=== PATIENT | female | born 1940 | race Caucasian/White ===

== ENCOUNTER 2016-05-10 10:46 | Emergency (ER) | payer MEDICARE ==
[2016-05-10 11:26] LABS: BILIRUBIN 2+ mg/dL (NEGATIVE); BLOOD 3+ Ery/uL (NEGATIVE); CLARITY HAZY (CLEAR); COLOR RED (YELLOW); GLUCOSE (U) NORMAL (NORMAL); KETONE (U) TRACE mg/dL (NEGATIVE); LEUKOCYTES 3+ Leu/uL (NEGATIVE); NITRITE POSITIVE (NEGATIVE); PROTEIN 3+ mg/dL (NEGATIVE); pH 7.5 (5.0-9.0)
[2016-05-10 11:31] LABS: BACTERIA 1+; SQUAMOUS EPITHELIAL CELLS RARE; URINARY RBC 20-50
[2016-05-10 11:42] LABS: BASOPHIL 1.6 % (0-2); EOSINOPHIL 5.2 % (0-7); HCT 48.4 % (37.0-47.0); HGB 16.2 g/dl (12.5-16.0); LYMPHOCYTE 22.4 % (15-48); MCH 32.8 pg (25.0-31.0); MCHC 33.5 g/dL (32.0-36.0); MONOCYTE 9.2 % (0-12); MPV 10.6 fL (6.0-9.5); NEUTROPHIL 61.6 % (41-80); PLT 177 K/uL (150-400); RBC 4.94 M/uL (4.20-5.40); RDW 14.2 % (11.5-14.0); WBC 5.6 K/uL (4.0-10.5)
[2016-05-10 12:41] LABS: INR 1.42 (0.9-1.2); PROTHROMBIN TIME 16.9 SECONDS (11.7-14.0)
[2016-05-10 12:47] LABS: ALBUMIN 3.9 g/dL (3.4-4.8); BILIRUBIN - TOTAL 0.4 mg/dL (0.1-1.0); PHOSPHORUS 2.6 mg/dL (2.7-4.5); POTASSIUM 4.4 mmol/L (3.5-5.1); TOTAL PROTEIN 6.9 g/dL (6.4-8.3)
[2016-05-10 12:56] LABS: PTT 30.9 SECONDS (23.2-31.4)
== END 2016-05-10 14:05 | disposition home or self-care (01) ==
LOC: FER 10:46
PROVIDERS: Emergency Medicine
DX: N13.2 Hydronephrosis with renal and ureteral calculous obstruction (principal); I10 Essential (primary) hypertension; I25.2 Old myocardial infarction; E03.9 Hypothyroidism, unspecified; Z95.1 Presence of aortocoronary bypass graft
CPT/HCPCS: 36415; 80053; 81001; 84100; 84484; 85025; 85610; 85730; 87076; 87088; 87186

== ENCOUNTER 2016-05-13 11:40 | Emergency (ER) | payer MEDICARE | END 2016-05-13 14:22 | disposition home or self-care (01) | LOC: FER 11:40 | DX: M79.81 Nontraumatic hematoma of soft tissue (principal); I25.2 Old myocardial infarction; I10 Essential (primary) hypertension; Z86.718 Personal history of other venous thrombosis and embolism; Z91.040 Latex allergy status; Z79.82 Long term (current) use of aspirin; Z79.01 Long term (current) use of anticoagulants; Z79.899 Other long term (current) drug therapy | CPT/HCPCS: 93971; 99283 ==

== ENCOUNTER 2020-04-06 06:50 | Day surgery (SDCO) | payer MEDICARE ==
[~2020-04-06] VITALS: Ht 158 cm; Wt 62.0 kg
[~2020-04-06 06:50] MED LIST: BACLOFEN 10MG T10 MG PO; BUSPIRONE HCL15 M1 PO; DONEPEZIL HCL5 MG PO; DULOXETINE HCL60 MG PO; ELIQUIS5 MG PO; FLEXERIL10 MG PO; FOLIC ACID1 M1 PO; KEFLEX250 MG PO; LIPITOR20 MG PO; LOSARTAN POTASS25 MG PO; MELATONIN5 M2 PO; NAPROXEN500 MG PO; ONDANSETRON ODT4 MG PO; SYNTHROID75 MCG PO; TOPROL XL 25MG25 MG PO; WARFARIN SODIUM5 MG PO
[2020-04-06 08:48] LABS: INR 1.09 (0.9-1.2); PROTHROMBIN TIME 13.4 SECONDS (11.4-13.6); PTT 22.8 SECONDS (22.2-34.7)
[2020-04-06 09:07] LABS: BUN/CREAT RATIO (CALC) 20.2 RATIO; CREATININE 1.09 mg/dL (0.51-0.95); POTASSIUM 4.1 mmol/L (3.5-5.1)
[2020-04-07 06:45] LABS: HCT 39.5 % (37.0-47.0); HGB 12.6 g/dl (12.5-16.0); MCH 32.9 pg (25.0-31.0); MCHC 31.9 g/dL (32.0-36.0); MCV 103.1 fL (78.0-100.0); MPV 10.6 fL (6.0-9.5); RBC 3.83 M/uL (4.20-5.40); RDW 13.8 % (11.5-14.0); WBC 11.3 K/uL (4.0-10.5)
[2020-04-07 06:54] LABS: INR 1.11 (0.9-1.2); PROTHROMBIN TIME 13.6 SECONDS (11.4-13.6)
[2020-04-07 07:07] LABS: BUN/CREAT RATIO (CALC) 19.4 RATIO; CREATININE 1.08 mg/dL (0.51-0.95); POTASSIUM 4.9 mmol/L (3.5-5.1)
[2020-04-07] MEDS ORDERED: TOPROL XL 25MG25 MG PO (13:02)
[2020-04-07] MEDS ORDERED: WARFARIN SODIUM5 MG PO (13:05)
--- NOTE | 2020-04-07 14:56 | NUR ---
04/07/20 Ms. Marquis lives at home with her spouse. She was indeoendent in the home and community prior to admission. She underwent a masectomy. A referral was made to [facility] per patient choice; affliations explained. - Ms. Villalobos was educated to [facility] and [facility]. - Report was given to MS KARLA Goodman.
[2020-04-07] MEDS ORDERED: ULTRAM50 MG PO (15:11)
[2020-04-07] MEDS ORDERED: ACETAMINOPHEN500 M1 PO (15:11)
== END 2020-04-07 16:50 | disposition home health service (06) ==
LOC: FMS 06:50 → FSDC 06:50 → FMS 09:30
PROVIDERS: ADMIT Student in an Organized Health Care Education/Training Program
DX: C50.512 Malignant neoplasm of lower-outer quadrant of left female breast (principal); D24.2 Benign neoplasm of left breast; F41.9 Anxiety disorder, unspecified; E03.9 Hypothyroidism, unspecified; I25.10 Atherosclerotic heart disease of native coronary artery without angina pectoris; I11.0 Hypertensive heart disease with heart failure; I50.9 Heart failure, unspecified; F32.9 Major depressive disorder, single episode, unspecified; F03.90 Unspecified dementia, unspecified severity, without behavioral disturbance, psychotic disturbance, mood disturbance, and anxiety; F05 Delirium due to known physiological condition; I95.81 Postprocedural hypotension; K21.9 Gastro-esophageal reflux disease without esophagitis; E78.5 Hyperlipidemia, unspecified; E55.9 Vitamin D deficiency, unspecified; I34.0 Nonrheumatic mitral (valve) insufficiency; I73.9 Peripheral vascular disease, unspecified; Q63.1 Lobulated, fused and horseshoe kidney; E53.8 Deficiency of other specified B group vitamins; E78.00 Pure hypercholesterolemia, unspecified; I07.1 Rheumatic tricuspid insufficiency; I48.0 Paroxysmal atrial fibrillation; I25.2 Old myocardial infarction; Z17.0 Estrogen receptor positive status [ER+]; Z87.891 Personal history of nicotine dependence; Z79.01 Long term (current) use of anticoagulants; Z79.899 Other long term (current) drug therapy; Z88.8 Allergy status to other drugs, medicaments and biological substances; Z91.040 Latex allergy status; Z95.1 Presence of aortocoronary bypass graft; Z90.11 Acquired absence of right breast and nipple
CPT/HCPCS: 36415; 78195; 80048; 85610; 85730; 88341; 88342; 94762; A9541; G0378; J0690; J1644; J2370; J2405; J2704; J3010; J7030; J7120

== ENCOUNTER 2020-08-12 10:45 | Emergency (ER) | payer MEDICARE ==
[~2020-08-12 10:45] MED LIST changes: +ACETAMINOPHEN500 M1 PO; +ULTRAM50 MG PO
== END 2020-08-12 12:05 | disposition home or self-care (01) ==
LOC: FER 10:45
DX: S43.402A Unspecified sprain of left shoulder joint, initial encounter (principal); Z85.3 Personal history of malignant neoplasm of breast; W11.XXXA Fall on and from ladder, initial encounter
CPT/HCPCS: 73030

== ENCOUNTER 2021-02-04 15:14 | Inpatient (IN) | payer MEDICARE ==
[~2021-02-04] VITALS: Ht 157.5 cm; Wt 60.8 kg
[2021-02-04 16:52] LABS: BASOPHIL 0.1 % (0-2); EOSINOPHIL 0.1 % (0-7); HCT 47.5 % (37.0-47.0); HGB 15.9 g/dl (12.5-16.0); LYMPHOCYTE 4.5 % (15-48); MCH 31.7 pg (25.0-31.0); MCHC 33.5 g/dL (32.0-36.0); MCV 94.8 fL (78.0-100.0); MONOCYTE 7.8 % (0-12); MPV 11.3 fL (6.0-9.5); NEUTROPHIL 87.1 % (41-80); NRBC 0; PLT 171 K/uL (150-400); RBC 5.01 M/uL (4.20-5.40); RDW 13.8 % (11.5-14.0); WBC 14.8 K/uL (4.0-10.5)
[2021-02-04 17:28] LABS: INR 2.29 (0.9-1.2); PROTHROMBIN TIME 24.3 SECONDS (11.8-13.4)
[2021-02-04 17:32] LABS: LACTIC ACID 1.4 mmol/L (0.4-1.9)
[2021-02-04 17:44] LABS: ALBUMIN 3.1 g/dL (3.4-5.0); BILIRUBIN - TOTAL 1.1 mg/dL (0.2-1.0); BUN/CREAT RATIO (CALC) 17.9 RATIO; CREATININE 1.12 mg/dL (0.51-0.95); GLOBULIN (CALCULATION) 4.5 g/dL; POTASSIUM 4.2 mmol/L (3.5-5.1); TOTAL PROTEIN 7.6 g/dL (6.4-8.2)
[2021-02-04 20:47] LABS: BILIRUBIN NEGATIVE (NEGATIVE); BLOOD 3+ Ery/uL (NEGATIVE); COLOR YELLOW (YELLOW); GLUCOSE (U) NORMAL (NORMAL); LEUKOCYTES 2+ Leu/uL (NEGATIVE); NITRITE NEGATIVE (NEGATIVE); PROTEIN 1+ mg/dL (NEGATIVE); SPECIFIC GRAVITY 1.015 (1.001-1.030); pH 8.5 (5.0-9.0)
[2021-02-04 20:51] LABS: CLARITY HAZY (CLEAR)
[2021-02-04 20:53] LABS: BACTERIA 3+; URINARY WBC 20-50
[2021-02-04 23:02] LABS: CORONAVIRUS 2019 SARS-COV-2 NEGATIVE (NEGATIVE); INFLUENZA A NAA NEGATIVE (NEGATIVE)
[2021-02-05 04:10] LABS: HCT 41.2 % (37.0-47.0); HGB 13.5 g/dl (12.5-16.0); MCH 31.8 pg (25.0-31.0); MCHC 32.8 g/dL (32.0-36.0); MCV 96.9 fL (78.0-100.0); MPV 10.3 fL (6.0-9.5); RBC 4.25 M/uL (4.20-5.40)
[2021-02-05 04:29] LABS: ALBUMIN 2.4 g/dL (3.4-5.0); BILIRUBIN - TOTAL 1.4 mg/dL (0.2-1.0); BUN/CREAT RATIO (CALC) 17.1 RATIO; CREATININE 1.11 mg/dL (0.51-0.95); GLOBULIN (CALCULATION) 3.6 g/dL; MAGNESIUM 1.7 mg/dL (1.8-2.4); PHOSPHORUS 1.8 mg/dL (2.6-4.7); POTASSIUM 3.7 mmol/L (3.5-5.1)
[2021-02-05 08:36] LABS: BASOPHIL 0.5 % (0-2); EOSINOPHIL 0.2 % (0-7); HCT 43.4 % (37.0-47.0); HGB 13.7 g/dl (12.5-16.0); LYMPHOCYTE 10.9 % (15-48); MCH 31.9 pg (25.0-31.0); MCHC 31.6 g/dL (32.0-36.0); MONOCYTE 8.4 % (0-12); MPV 10.3 fL (6.0-9.5); NEUTROPHIL 79.3 % (41-80); NRBC 0; PLT 157 K/uL (150-400); RDW 14.2 % (11.5-14.0)
[2021-02-05 08:45] LABS: MCV 100.9 fL (78.0-100.0)
[2021-02-05 08:45] LABS: BUN/CREAT RATIO (CALC) 16.8 RATIO; CREATININE 1.01 mg/dL (0.51-0.95); POTASSIUM 3.9 mmol/L (3.5-5.1)
[2021-02-06 05:25] LABS: BASOPHIL 0.5 % (0-2); EOSINOPHIL 0.5 % (0-7); HCT 36.6 % (37.0-47.0); HGB 12.2 g/dl (12.5-16.0); LYMPHOCYTE 13.9 % (15-48); MCH 32.2 pg (25.0-31.0); MCHC 33.3 g/dL (32.0-36.0); MONOCYTE 9.6 % (0-12); MPV 10.3 fL (6.0-9.5); NEUTROPHIL 74.6 % (41-80); NRBC 0; PLT 148 K/uL (150-400); RBC 3.79 M/uL (4.20-5.40); RDW 14.2 % (11.5-14.0); WBC 8.5 K/uL (4.0-10.5)
[2021-02-06 05:27] LABS: MCV 96.6 fL (78.0-100.0)
[2021-02-06 05:34] LABS: INR 2.73 (0.9-1.2)
[2021-02-06 05:44] LABS: BUN/CREAT RATIO (CALC) 13.6 RATIO; CREATININE 0.88 mg/dL (0.51-0.95); POTASSIUM 2.9 mmol/L (3.5-5.1)
[2021-02-07 05:04] LABS: BASOPHIL 0.6 % (0-2); EOSINOPHIL 2.6 % (0-7); HCT 35.5 % (37.0-47.0); HGB 12.2 g/dl (12.5-16.0); MCHC 34.4 g/dL (32.0-36.0); MCV 95.9 fL (78.0-100.0); MONOCYTE 10.1 % (0-12); MPV 10.2 fL (6.0-9.5); NEUTROPHIL 71.1 % (41-80); NRBC 0; PLT 141 K/uL (150-400); RDW 14.4 % (11.5-14.0)
[2021-02-07 05:14] LABS: INR 4.03 (0.9-1.2); PROTHROMBIN TIME 38.1 SECONDS (11.8-13.4)
[2021-02-07 05:23] LABS: BUN/CREAT RATIO (CALC) 11.2 RATIO; CREATININE 0.89 mg/dL (0.51-0.95); MAGNESIUM 1.6 mg/dL (1.8-2.4); POTASSIUM 3.4 mmol/L (3.5-5.1)
[2021-02-07] MEDS ORDERED: LOPRESSOR25 MG PO (07:55)
[2021-02-07] MEDS ORDERED: FOLIC ACID1 MG PO (07:55)
[2021-02-08 05:43] LABS: BASOPHIL 0.8 % (0-2); EOSINOPHIL 6.1 % (0-7); HCT 37.5 % (37.0-47.0); HGB 12.3 g/dl (12.5-16.0); LYMPHOCYTE 16.3 % (15-48); MCH 31.8 pg (25.0-31.0); MCHC 32.8 g/dL (32.0-36.0); MCV 96.9 fL (78.0-100.0); MONOCYTE 11.2 % (0-12); MPV 10.4 fL (6.0-9.5); NEUTROPHIL 64.9 % (41-80); NRBC 0; PLT 174 K/uL (150-400); RBC 3.87 M/uL (4.20-5.40); RDW 14.6 % (11.5-14.0); WBC 5.9 K/uL (4.0-10.5)
[2021-02-08 05:53] LABS: INR 4.75 (0.9-1.2); PROTHROMBIN TIME 43.4 SECONDS (11.8-13.4)
[2021-02-08 06:04] LABS: BUN/CREAT RATIO (CALC) 7.5 RATIO; CREATININE 0.93 mg/dL (0.51-0.95); MAGNESIUM 1.9 mg/dL (1.8-2.4); POTASSIUM 3.8 mmol/L (3.5-5.1)
--- NOTE | 2021-02-08 14:23 | NUR ---
02/08/21 Ms. Marquis has a dx of dementia and is confused. She is unable to participate in a social assessment. Per telephone conversation with Mr. Marquis. Ms. Marquis lives at home and has 24 hour care from Mr. Marquis. She does not use DME. Ms. Marquis has 4 children in [place] and Mr. Marquis has 3 children. - Discharge plans were discussed with Mr. Jacobsen. He initially reported plans to for her to return home. Multiple resources were provided; Assisted Living, Adult Daycare, Sitter services and [facility]. - A return call was placed to Mr. Jacobsen after [facility] reports to have received a referral from a stepdaughter. Mr. Jacobsen was in agreement with making a referral to [facility]. Clinicials were faxed. He was educated to Medicare criteria for placement, private pay and Medicaid inhome spouse beneifit.
[2021-02-09 06:39] LABS: BASOPHIL 1.1 % (0-2); EOSINOPHIL 5.8 % (0-7); HCT 37.1 % (37.0-47.0); HGB 12.5 g/dl (12.5-16.0); LYMPHOCYTE 21.7 % (15-48); MCH 32.1 pg (25.0-31.0); MCHC 33.7 g/dL (32.0-36.0); MCV 95.1 fL (78.0-100.0); MONOCYTE 9.5 % (0-12); MPV 9.8 fL (6.0-9.5); NEUTROPHIL 61.7 % (41-80); NRBC 0; PLT 203 K/uL (150-400); RDW 14.5 % (11.5-14.0); WBC 6.6 K/uL (4.0-10.5)
[2021-02-09 06:56] LABS: INR 3.17 (0.9-1.2); PROTHROMBIN TIME 31.5 SECONDS (11.8-13.4)
[2021-02-09 07:05] LABS: BUN/CREAT RATIO (CALC) 6.3 RATIO; CREATININE 0.95 mg/dL (0.51-0.95); MAGNESIUM 1.8 mg/dL (1.8-2.4); POTASSIUM 3.3 mmol/L (3.5-5.1)
[2021-02-10 06:15] LABS: INR 2.09 (0.9-1.2); PROTHROMBIN TIME 22.6 SECONDS (11.8-13.4)
[2021-02-10 06:29] LABS: BUN/CREAT RATIO (CALC) 11.3 RATIO; CREATININE 0.97 mg/dL (0.51-0.95); POTASSIUM 3.5 mmol/L (3.5-5.1)
--- NOTE | 2021-02-10 14:11 | NUR ---
02/[address] Osborn, patient could be discharge if IV antibiotics can be arranged. A voice message was left for Mr. Marquis.
--- NOTE | 2021-02-11 13:05 | NUR ---
02/11/21 The IV Invanc has been approved by insurance. Mr. Marquis has agreed to pay the $300.00 co-pay. Report given to Dr. Osborn and JAMES Sanford, RN.
--- NOTE | 2021-02-11 14:21 | NUR ---
MD WILL ORDER PT TO GO HOME WITH HOMEHealth and CENTRAL LINE IN LEFT FEMORAL FOR ANTIBIOTIC USE. PT HAS 3 DAYS LEFT OF ANTIBIOTICS. AN ORDER WILL BE NEEDED TO HAVE PT COME BACK TO OUTPT ON MONDAY TO GET CENTRAL REMOVED.
[2021-02-11] MEDS ORDERED: ZESTRIL2.5 MG PO (14:37)
[2021-02-11] MEDS ORDERED: LASIX20 MG PO (14:46)
[2021-02-11] MEDS ORDERED: KLOR-CON M 1010 MEQ PO (14:46)
--- NOTE | 2021-02-11 16:31 | NUR ---
PT BEING DISCHARGED HOME WITH HOME HEALTH. JOSEFINA HAS SET HOME HEALTH UP TO GIVE PT ANTIBIOTIC IVANZ THROUGH CURRENT PT CENTRAL LINE IN LEFT FEMORAL TRIPLE LUMEN. THIS RN QUESTIONED SENDING PT HOME WITH CENTRAL WITH , [employer] SUPERVIOR, SKIP TRACER AND OTHER STAFF MEMBERS. SAID OK TO GO HOME WITH CENTRAL AND WROTE ORDERS TO DO SO AND ORDER TO COME BACK 02/14/21 TO REMOVE BY OUTPATIENT. ORDER FAXED TO OUTPATIENT. SPOKE WITH SANKET APPROX. [phone] TO VERIFY THAT THEY RECIEVED ORDER. SANKET STATES TO LET PT KNOW TO COME THROUGH ER OUTPATIENT AT 2PM. SPOUSE WAS EDUCATED ON THIS ORDER, AND WHAT INTERVENTION TO DO IF CENTRAL LINE IS ACCIDENTALLY REMOVED. SPOUSE WAS TOLD TO HOLD PRESSURE UNITL BLEEDING STOPS AND CALL EMS. WENT OVER ALL NEW MEDICATIONS WHAT THEY WERE FOR AND HOW TO USE.
== END 2021-02-11 16:48 | disposition home health service (06) | DRG 871 ==
LOC: FER 15:14 → FTCU 02-06 14:43 → FICU 02-06 14:43 → FTCU 02-07 07:24
PROVIDERS: Allergy & Immunology Allergy; Emergency Medicine; Nurse Practitioner; ADMIT Internal Medicine
PROC: 3E043XZ Introduction of Vasopressor into Central Vein, Percutaneous Approach (ICD-10-PCS; principal; 2021-02-05)
DX: A41.59 Other Gram-negative sepsis (principal); R65.21 Severe sepsis with septic shock; I50.23 Acute on chronic systolic (congestive) heart failure; I21.A1 Myocardial infarction type 2; J18.9 Pneumonia, unspecified organism; G93.41 Metabolic encephalopathy; N39.0 Urinary tract infection, site not specified; I48.20 Chronic atrial fibrillation, unspecified; C15.9 Malignant neoplasm of esophagus, unspecified; Z16.24 Resistance to multiple antibiotics; Z20.822 Contact with and (suspected) exposure to COVID-19; A41.89 Other specified sepsis; F03.90 Unspecified dementia, unspecified severity, without behavioral disturbance, psychotic disturbance, mood disturbance, and anxiety; I10 Essential (primary) hypertension; E78.5 Hyperlipidemia, unspecified; I25.10 Atherosclerotic heart disease of native coronary artery without angina pectoris; I08.0 Rheumatic disorders of both mitral and aortic valves; E78.00 Pure hypercholesterolemia, unspecified; F32.A Depression, unspecified; I11.0 Hypertensive heart disease with heart failure; I73.9 Peripheral vascular disease, unspecified; E87.6 Hypokalemia; R31.9 Hematuria, unspecified; R33.9 Retention of urine, unspecified; Q63.1 Lobulated, fused and horseshoe kidney; Z95.1 Presence of aortocoronary bypass graft; Z90.13 Acquired absence of bilateral breasts and nipples; Z98.890 Other specified postprocedural states; Z79.01 Long term (current) use of anticoagulants; Z87.891 Personal history of nicotine dependence; Z87.440 Personal history of urinary (tract) infections; Z85.3 Personal history of malignant neoplasm of breast; I25.2 Old myocardial infarction; Z91.040 Latex allergy status; Z88.8 Allergy status to other drugs, medicaments and biological substances; Z79.890 Hormone replacement therapy; Z79.899 Other long term (current) drug therapy
CPT/HCPCS: 36415; 36600; 70450; 71045; 71250; 80048; 80053; 80061; 81001; 82803; 83036; 83605; 83735; 84100; 84145; 84484; 85025; 85610; 85730; 87040; 87077; 87088; 87186; 93005; 96365; 96366; 96372; 96375; 96376; 97110; 97162; 97166; 97530-GP; 97535; J0456; J1335; J1630; J1650; J1940; J2060; J2543; J3475; J7030; J7040; J7050; U0002